=== PATIENT | male | born 1935 | race Caucasian/White ===

== ENCOUNTER → 2017-03-14 | Outpatient (CLI) | payer MEDICARE, BC | LOC: M SMT PRO 08:16 | DX: C61 Malignant neoplasm of prostate (principal) | CPT/HCPCS: G0416 ==

== ENCOUNTER → 2017-03-21 | Outpatient (CLI) | payer MEDICARE ==
[2017-03-21 14:10] LABS: ANION GAP 8 MEQ/L (8-16); BLOOD UREA NITROGEN 29 MG/DL (7-18); CALCIUM LEVEL 9.4 MG/DL (8.8-10.2); CARBON DIOXIDE LEVEL 26 MEQ/L (21-32); CHLORIDE LEVEL 108 MEQ/L (98-107); CREATININE FOR GFR 0.94 MG/DL (0.70-1.30); GLOMERULAR FILTRATION RATE > 60.0 (>35); GLUCOSE, FASTING 106 MG/DL (70-100); POTASSIUM SERUM 4.5 MEQ/L (3.5-5.1); SODIUM LEVEL 142 MEQ/L (136-145)
== END ==
LOC: M SMT 08:53
DX: C61 Malignant neoplasm of prostate (principal)
CPT/HCPCS: 80048

== ENCOUNTER → 2017-04-18 | Outpatient (CLI) | payer MEDICARE | LOC: M ONCR 14:18 | DX: C61 Malignant neoplasm of prostate (principal) | CPT/HCPCS: G0463 ==

== ENCOUNTER → 2017-04-25 | Outpatient (CLI) | payer MEDICARE | LOC: M SMT PRO 08:39 | DX: C61 Malignant neoplasm of prostate (principal) | CPT/HCPCS: 55876; A4648 ==

== ENCOUNTER 2017-05-10 14:15 | Outpatient (RCR) | payer MEDICARE | END 2017-05-20 | LOC: M ONCR 14:15 | DX: C61 Malignant neoplasm of prostate (principal) | CPT/HCPCS: 77334 ==

== ENCOUNTER → 2017-05-10 | Outpatient (CLI) | payer MEDICARE | LOC: M RAD 14:05 | DX: C61 Malignant neoplasm of prostate (principal) ==

== ENCOUNTER 2017-05-22 08:54 | Outpatient (RCR) | payer MEDICARE | END 2017-06-19 | LOC: M ONCR 08:54 | DX: C61 Malignant neoplasm of prostate (principal) | CPT/HCPCS: 77300 ==

== ENCOUNTER 2017-06-20 11:04 | Outpatient (RCR) | payer MEDICARE | END 2017-07-20 | LOC: M ONCR 11:04 | DX: C61 Malignant neoplasm of prostate (principal) | CPT/HCPCS: 77300 ==

== ENCOUNTER 2017-07-21 11:21 | Outpatient (RCR) | payer MEDICARE | END 2017-08-19 | LOC: M ONCR 11:21 | DX: C61 Malignant neoplasm of prostate (principal) | CPT/HCPCS: 77336 ==

== ENCOUNTER → 2017-09-13 | Outpatient (CLI) | payer MEDICARE | LOC: M ONCR 09:37 | DX: Z08 Encounter for follow-up examination after completed treatment for malignant neoplasm (principal); Z85.46 Personal history of malignant neoplasm of prostate | CPT/HCPCS: G0463 ==

== ENCOUNTER → 2017-12-08 | Outpatient (CLI) | payer MEDICARE ==
[2017-12-08 13:53] LABS: PROSTATIC SPECIFIC AG MONITOR < 0.01 NG/ML (< 4.0)
== END ==
LOC: M SMT 10:31
DX: C61 Malignant neoplasm of prostate (principal)
CPT/HCPCS: 84153

== ENCOUNTER → 2018-06-07 | Outpatient (CLI) | payer MEDICARE ==
[~2018-06-07] MED LIST: FLOM0.4C39 PO
== END ==
LOC: M SMT 09:54
PROVIDERS: ATTEND Nurse Practitioner Family
DX: C61 Malignant neoplasm of prostate (principal)
CPT/HCPCS: 36415; 84153; G0463